=== PATIENT | female | born 1980 | race Caucasian/White ===

== ENCOUNTER → 2024-02-03 12:56 | Outpatient (REF) | payer BC, SELFPAY | LOC: HWRAD 12:56 | PROVIDERS: ATTENDING PHYSICIAN Nurse Practitioner Family | DX: R10.9 Unspecified abdominal pain (principal) | CPT/HCPCS: 74176 ==

== ENCOUNTER → 2024-12-23 11:38 | Outpatient (REF) | payer BC, SELFPAY | LOC: HWCARD 11:38 | PROVIDERS: ATTENDING PHYSICIAN Nurse Practitioner Family | DX: K57.32 Diverticulitis of large intestine without perforation or abscess without bleeding (principal); Z85.43 Personal history of malignant neoplasm of ovary; Z80.0 Family history of malignant neoplasm of digestive organs; E66.01 Morbid (severe) obesity due to excess calories | CPT/HCPCS: 93005 ==

== ENCOUNTER 2025-06-15 00:45 | Observation (INO) | payer BC, SELFPAY ==
[2025-06-14 19:24] VITALS: BP 138/96
[2025-06-14 20:01] LABS: Hematocrit 43.9 % (37.0-47.0); Hemoglobin 14.6 g/dL (12.0-16.0); Mean Corp Hgb Conc. 33.3 g/dL (33.0-37.0); Mean Corpuscular Volume 81.6 fL (81.0-99.0); Nucleated Red Blood Cells % 0 %; Platelet Count 358 10^3/uL (130-400); Red Cell Dist. Width 13.4 % (11.5-14.5)
[2025-06-14 20:08] LABS: Urine Character Slightly Cloudy (Clear)
[2025-06-14 20:20] LABS: Urine Squamous Cell 21-25 /LPF (Few); Urine White Cell >100 /HPF (0-5)
[2025-06-14 20:24] LABS: ALT (SGPT) 17 U/L (0-35); AST (SGOT) 18 U/L (14-36); Albumin 4.5 g/dl (3.5-5.0); Alkaline Phosphatase 97 U/L (38-126); Blood Urea Nitrogen 15 mg/dl (7-17); Calcium 9.7 mg/dl (8.4-10.2); Carbon Dioxide 24 mmol/L (22-30); Chloride 102 mmol/L (98-107); Glucose 96 mg/dl (70-99); Lipase 117 U/L (23-300); Potassium 4.1 mmol/L (3.5-5.1); Sodium 136 mmol/L (135-145); Total Protein 7.3 g/dl (6.3-8.2); eGFR > 60.00
--- NOTE | 2025-06-14 21:51 | ED.GENMED ---
History of Present Illness
General
Chief Complaint: Flank Pain
Source: patient
Time Seen by Provider: 06/14/25 21:35
History of Present Illness
History of Present Illness:
44-year-old female presenting to the ER for evaluation after she was diagnosed with a urinary tract infection at urgent care on Thursday, noticed in the week or so leading up to this she was having urinary urgency and frequency, at the beginning had 1
episode of hematuria, started on Ceftin which she has taken 4 total days worth. She reports that today symptoms started to worsen and were accompanied with a tactile fever, nausea and vomiting and worsening pain to her left flank area. Patient
states she has a known kidney stone but otherwise no other pertinent history. She did not take anything for her symptoms prior to arrival.
Past History
Past History
ED Past Medical History: Other (Diverticulitis)
ED Past Surgical History:
Social History
Tobacco: Non-smoker
Alcohol: None
Drug: None
Personal:
Living: with family
Employment: Employed
Review of Systems
Review of Systems
All Other Systems: ROS reviewed and negative except as documented in HPI and ROS
Phy Exam
Physical Exam
Physical Exam:
GENERAL: Alert , in no apparent distress
EYE: clear conjunctiva b/l
HEAD: NCAT
ENT: o/p clr, mmm.
CARDIAC: Regular rate and rhythm .
LUNGS: Clear breath sounds bilaterally, no acute respiratory distress, no wheezes/rales/rhonchi
ABDOMEN: Soft, without focal tenderness, no r/g, left CVAT
NEUROLOGICAL: Alert and oriented
SKIN: Warm and dry, skin intact.
MUSCULOSKELETAL: well perfused.
PSYCH: Normal and appropriate interaction.
Scores
Heart Failure Risk
Heart Failure Risk Score: Not Applicable
Heart Score for Chest Pain Patients
STEMI patient?: Not applicable
Withdrawal Assessment of Alcohol
Withdrawal Assessment Completed?: Not applicable
Course
Orders/Labs/Results
Orders:
Orders
06/14/25 19:51
Complete Blood Count/With Diff Urgent
Comprehensive Metabolic Panel Urgent
HCG, Serum Qualitative Screen Urgent
Comment: ADD ON
Lipase Urgent
Urinalysis Reflex To Culture Urgent
Date Specimen was Collected: 06/14/25
Time Specimen was Collected: 19:29
Urine Microscopic Reflex Cult Urgent
Urine Culture Urgent
WILLIAM Source: U
Specimen Description:
Date Specimen was Collected: 06/14/25
Time Specimen was Collected: 19:29
06/14/25 21:45
CT Abd/pel Without Iv Or Oral Urgent
Comment:
Reason For Exam: left flank pain, hx stone, UTI
06/14/25 21:50
Add On- LAB Urgent
Tests Added?: HCG qual
06/14/25 22:09
LevoFLOXacin 500 MG/100 ML [Levaquin] 500 mg in 100 ml IV NOW
06/14/25 22:39
Ondansetron Injectable [Zofran] 4 mg IV NOW STA
Abnormal Lab Results
06/14/25
19:51
WBC 12.0 H 10^3/uL
(4.8-10.8)
Absolute Neuts (auto) 8.5 H 10^3/uL
(1.4-6.5)
Absolute Monos (auto) 0.9 H 10^3/uL
(0.1-0.6)
Lymphocytes % 19.2 L %
(20.5-51.1)
Ur Occult Blood Reflex 2+ A
(Negative)
Urine Nitrite (Reflex) Positive A
(Negative)
Urine Bilirubin 1+ A
(Negative)
Leukocyte Esterase Rfl 3+ A
(Negative)
Urine RBC 3-6 A /HPF
(0-2)
Urine WBC (Reflex) >100 A /HPF
(0-5)
Urine Bacteria (Reflex) Moderate A
(Negative)
Urine Albumin (Reflex) 2+ A
(Neg - Trace)
06/14/25 19:51
06/14/25 19:51
Vital Signs
Initial and Last Documented VS:
Initial Vital Signs
Temp Pulse Resp BP Pulse Ox
97.4 F 94 18 138/96 96
06/14/25 19:24 06/14/25 19:24 06/14/25 19:24 06/14/25 19:24 06/14/25 19:24
Last Documented Vital Signs
Temp Pulse Resp BP Pulse Ox
97.4 F 86 18 131/72 98
06/14/25 19:24 06/14/25 22:17 06/14/25 22:17 06/14/25 22:17 06/14/25 22:17
MDM/Problems Addressed
Differential Diagnosis Includes:
Pyelonephritis
Infected stone
Muscle strain
Shingles
PAPA
MDM/Problems Addressed:
44-year-old female presenting to the ER for evaluation of continued urinary symptoms, today developed fever nausea and vomiting increased pain. Urine culture reviewed from the urgent care which shows ESBL E. coli which is multidrug-resistant. The
bacteria is susceptible to levofloxacin. Will initiate this IV currently. Will check CT scan to rule out infected kidney stone. Disposition pending.
*Radiology
Radiology exam reviewed: radiology read reviewed
*Pulse Oximetry
SaO2: 96
Oxygen Mode of Delivery: Room air
Patient hypoxic: no
*Critical Care Note
Total Time (30-74mins, 75-104mins- exclusive of procedures): Not Applicable
Patient Management
Discussion with other providers: Hospitalist
Escalation/DeEscalation of care consider admission/obs:
CT scan shows bilateral nephrolithiasis but no evidence for obstructive uropathy. Patient did endorse some mild nausea during her workup, Zofran was given. Given her subjective fever combined with her elevated white blood cell count, nausea and
vomiting and pain it was ultimately decided we would admit patient for IV antibiotics with Levaquin for the time being given the culture report. Hospitalist team is aware and accepts for continued evaluation and treatment.
ED Attending Note
-
Portions of this chart may have been created with voice recognition software.� Occasional wrong word or��sound alike� substitutions may have occurred due to the inherent limitations of voice recognition software.
Discharge Plan
Departure
Patient Disposition: Admit
Date of Disposition: 06/14/25
Time of Disposition: 23:20
Presentation/result/management discussed w/ accepting MD/DO: Hospitalist
Discharge Problem:
Acute pyelonephritis
Prescriptions:
No Action
zrqsavipmlxs-qqjd-axbcr acid [Centrum Women] 1 EACH tablet
1 ea PO DAILY
hydrocodone-acetaminophen 1 TABLET tablet
1 - 2 tab PO Q4HPRN PRN (Reason: pain) Qty: 30 0RF
Referrals:
Roseanna Brizuela CRNP [Family Provider, Family Practice]
Interventions
Interventions:
*Risk Screen - Suicide Last Done: 06/14/25 19:24
*ED Influenza Vaccine History Last Done: 06/14/25 19:24
[facility] Risk Assessment Tool Last Done: 06/14/25 22:37
KG-Wurlbz-Hbuljzcgtt Assessment Last Done: 06/14/25 22:36
ED-Female Genitourinary Assessment Last Done: 06/14/25 22:36
Discharge Date and Time
Print Language: ROMANIAN
[2025-06-14 22:17] VITALS: BP 131/72
[2025-06-14 22:17] LABS: HCG, Serum Qualitative Screen Negative
[2025-06-14] MEDS: ZOFRAN 4 MG IV (22:46)
[2025-06-14] MEDS: LEVAQUIN 100 IV (22:48)
--- NOTE | 2025-06-15 00:14 | HPS.HSE ---
Family Physician
-
Family Physician: SAILAJA Willams
Chief Complaint
-
Flank pain
History of Present Illness
This is a 44-year-old female who has past medical history significant for ovarian cancer status posttreatment, anxiety, history of diverticulitis who presents to the Emergency Department with persistent flank pain despite outpatient antibiotics.
Patient reported that she has been having symptoms over the last 2 weeks but mostly just flank pain. Today she reported that she had a fever at home. She also had nausea and vomiting x 1. She reports a sense of urgency but no dysuria. She denies
any frequency. Patient reported that she was given cefuroxime and had no improvement. She did have urine culture at time of diagnosis which showed ESBL. The cultures were sensitive to's Zosyn, levofloxacin, and Augmentin. Also sensitive to
fourth generation cephalosporin and ertapenem. She denies prior history of ESBL infection.
In the emergency department the patient was afebrile, blood pressure was 131/72 with a pulse rate of 86 and oxygen saturation of 98% on room air.
Otherwise count of 12.0 hemoglobin and platelet were normal. Electrolytes BUN/creatinine were normal. CT of the abdomen and pelvis showing bilateral nephrolithiasis, no evidence of ureteral calculus bilaterally. No hydronephrosis. A
intra-abdominal exam was otherwise normal.
Medical History
Past Medical History
Past Medical History: Reports Cancer (Ovarian cancer status post treatment completed 2021), Psychiatric (Anxiety) and Other (Diverticulitis)
Past Surgical History: Reports , Gynocological (Total abdominal hysterectomy), Tonsilectomy and Other (Breast lumpectomy 09/22/2021)
Social History
Tobacco: Non-smoker
Alcohol: None
Drug: Former User
Family History
Family History: Not pertinent
Allergies / Home Medications
Allergies reflects when Allergies were last updated in [employer].
Home Medications with original date entered in [facility]
Allergy/Medication List:
Allergies
Allergy/AdvReac Type Severity Reaction Status Date / Time
metronidazole (From Flagyl) Allergy Vomiting Verified 06/14/25 19:24
Home Medications
multivitamin-ferrous fumarate-folic acid 18 mg-400 mcg tablet (Centrum Women) 1 ea PO DAILY 12/18/20
hydrocodone 5 mg-acetaminophen 325 mg tablet 1 - 2 tab PO Q4HPRN PRN pain #30 tabs 12/23/20
Review of Systems
-
Constitutional: Reports No Symptoms
EENT: Reports No Symptoms
Respiratory: Reports No Symptoms
Cardiac: Reports No Symptoms
Abdomen/GI: Reports No Symptoms
: Reports Flank Pain
Musculoskeletal: Reports No Symptoms
Skin: Reports No Symptoms
Neurological: Reports No Symptoms
Endocrine: Reports No Symptoms
Hematologic/Lymphatic: Reports No Symptoms
Psych: Reports No Symptoms
Physical Exam
Vital Signs
Vital Signs
Temp Pulse Resp BP Pulse Ox
97.4 F 86 18 131/72 98
06/14/25 19:24 06/14/25 22:17 06/14/25 22:17 06/14/25 22:17 06/14/25 22:17
Physical Exam
General: Well Developed, Well Nourished, No Apparent Distress and Obese
HEENT: NormoCephalic, Moist mucous membranes and Atraumatic
Respiratory: Clear
Cardiac: S1/S2 and Regular Rhythm; No Murmur or Rub
GI: Soft, Non Tender, Non Distended and Normal Bowel Sounds; No Organomegaly
Rectal: Deferred by Provider
Musculoskeletal: No Clubbing, No Cyanosis and No Edema
Skin: No Rash
Neuro: AO x 3 and Nonfocal/grossly intact
Psych: Calm
Laboratory Results
-
06/14/25 19:51
06/14/25 19:51
Laboratory Results
Total Bilirubin 0.6 mg/dl (0.2-1.3) 06/14/25 19:51
AST 18 U/L (14-36) 06/14/25 19:51
ALT 17 U/L (0-35) 06/14/25 19:51
Alkaline Phosphatase 97 U/L (38-126) 06/14/25 19:51
Lipase 117 U/L (23-300) 06/14/25 19:51
Data Reviewed
-
CT Scan: Report Reviewed by me
Lab Data: Labs Reviewed by me
Old Records: Reviewed
Impression/Plan
-
IMPRESSION:
44-year-old female with history of nephrolithiasis who presents to the emergency department with left-sided flank pain x 2 weeks. Patient has been on oral antibiotics without any improvement. Reported subjective fever and nausea vomiting at home
today. UA is markedly positive. She does not show signs of sepsis as she has been afebrile, hemodynamically stable and nontoxic-appearing.
PLAN:
Pyelonephritis -ESBL but with sensitivities to levofloxacin and Augmentin, started on Augmentin in the ED
� Admit to [facility] observation
� Continue levofloxacin 750mg, no recent quinolone exposure and ESBL infection. HD stable and afebrile here.
� Urine cultures have been sent and pending
� If patient remains afebrile, has no significant symptoms of flank pain then can likely be discharged discharge on oral levofloxacin
� Pain control and antiemetics
DVT prophylaxis�Lovenox subcu
CODE STATUS�full code
[2025-06-15 01:33] VITALS: BP 96/67
[2025-06-15 01:47] VITALS: BMI 42.4
[2025-06-15 05:18] VITALS: BP 122/58
[2025-06-15 05:29] LABS: Hematocrit 40.1 % (37.0-47.0); Hemoglobin 13.4 g/dL (12.0-16.0); Mean Corp Hgb Conc. 33.4 g/dL (33.0-37.0); Mean Corpuscular Volume 81.8 fL (81.0-99.0); Platelet Count 317 10^3/uL (130-400); Red Cell Dist. Width 13.5 % (11.5-14.5)
[2025-06-15 05:54] LABS: Blood Urea Nitrogen 12 mg/dl (7-17); Calcium 9.2 mg/dl (8.4-10.2); Carbon Dioxide 25 mmol/L (22-30); Chloride 104 mmol/L (98-107); Estimated Creatinine Clearance > 125 ml/min; Glucose 99 mg/dl (70-99); Potassium 4.4 mmol/L (3.5-5.1); Sodium 138 mmol/L (135-145); eGFR > 60.00
[2025-06-15 10:25] VITALS: BP 132/64
[2025-06-15] MEDS: TYLENOL 650 MG PO ×2 (10:40→19:45)
--- NOTE | 2025-06-15 11:19 | CM ---
Chart reviewed OBS form reviewed and signed
Lives in [place] with spouse, dtr and son
Works as a ese teacher at [employer]
no DME
PCP Roseanna Brizuela
Pharmacy [facility] on [facility] [address] [facility]
no hx of VN nor SNF
DCP is to go home with no services
Cm will continue to follow up for any dcp needs
--- NOTE | 2025-06-15 13:42 | W.PN.UPDATE ---
Update Note
Progress Note Update
Seen and admitted by Dr Magallanes for failed OP UTI tx due to ESBL organism.
Started on IV Levaquin based on sensitivities
Will follow response and dc depending on the response
[2025-06-15 15:00] VITALS: BMI 40.6
--- NOTE | 2025-06-15 15:02 | PTCARENOTE ---
Pt received from ED via wheelchair accompanied by family and staff. Pt ambulated to standing scale and then to room with steady gait. Pt oriented to staff and environment.
[2025-06-15 15:04] VITALS: BP 133/73
[2025-06-15 15:05] VITALS: BMI 39.4
[2025-06-15] MEDS: LOVENOX 40 MG SC (17:58)
[2025-06-15] MEDS: LEVAQUIN 150 IV (22:06)
[2025-06-15 23:00] VITALS: BP 113/72
[2025-06-16 07:31] VITALS: BP 131/75
--- NOTE | 2025-06-16 11:07 | W.DCSUMMARY ---
Discharge Summary
Discharge Data
Date of Admission: 06/15/25
Date of Discharge: 06/16/25
-
Pending Results: No
Hospital Course
Primary diagnosis:
ESBL Escherichia coli urinary tract infection
Possible acute pyelonephritis
Secondary diagnosis:
Nephrolithiasis
Hospital course:
Patient with a history of nephrolithiasis found to have left-sided flank pain for 2 weeks. She was put on oral antibiotic without any improvement. She had subjective symptoms of fever, nausea and vomiting at home. She was also having left-sided
flank discomfort. A urinalysis was positive still on admission. She had evaluation as an outpatient including urine culture which turned out positive for ESBL E. coli. CT of the abdomen pelvis showed bilateral nephrolithiasis but no evidence of
ureteral calculus bilaterally.
She was switched to Levaquin and was given IV route.
Today she has she had complete resolution of flank pain. She had no further GI symptoms. She had no lower symptoms of dysuria or frequency. Afebrile, no tachycardia and blood pressure stable. Abdomen soft without flank tenderness. QTc is 415.
Antibiotics were switched to oral ciprofloxacin to continue for another 8 days for total of 10 days of treatments with possibility of clinical pyelonephritis.
Medically stable for discharge home today. Advised to follow with PCP.
Discharge Plan
-
Patient Disposition: Home (Routine Discharge)
Discharge Diagnosis/Procedures: ESBL Ecoli complicated UTI
Diet: Regular
Activity: As tolerated
Driving Restrictions: As prior to admission
Bathing Restrictions: None
Referrals:
Roseanna Brizuela CRNP [Family Provider, Family Practice] - in less than 1 week
Prescriptions:
New
acetaminophen 325 mg Tablet
650 mg PO Q4HPRN PRN (Reason: mild pain/LILLY/temp> 100.4F) Qty: 1 0RF
ciprofloxacin HCl 500 mg tablet
500 mg PO BID Qty: 16 0RF
Continued
Zepbound 7.5 mg/0.5 mL Pen Injector
7.5 mg SC GARCIA
Gruns
8 gummy PO DAILY
Patient Comments:
whole fruits, veggies, super mushrooms, prebiotics, adaptogens
ibuprofen [Advil] 200 mg Tablet
200 mg PO Q6H PRN (Reason: mild pain)
Discharge Orders:
Discharge Patient (As Directed); Ordered 06/16/25
Ordered By: Oral Cat
Discharge Date and Time
Print Language: GREENLANDIC
--- NOTE | 2025-06-16 13:28 | CM ---
MD entered order for discharge.
Pt is agreeable to discharge to home .
Offered VN she declined need.
Kim Foster will drive her home.
PLAN Home no needs
== END 2025-06-16 12:51 | disposition home or self-care (01) ==
LOC: 3 WEST ACU 00:45
PROVIDERS: ADMITTING PHYSICIAN Internal Medicine; ATTENDING PHYSICIAN Internal Medicine; EMERGENCY PHYSICIAN Student in an Organized Health Care Education/Training Program; FAMILY PHYSICIAN Nurse Practitioner Family
DX: N39.0 Urinary tract infection, site not specified (principal); B96.20 Unspecified Escherichia coli [E. coli] as the cause of diseases classified elsewhere; N20.0 Calculus of kidney; Z16.12 Extended spectrum beta lactamase (ESBL) resistance; Z16.24 Resistance to multiple antibiotics; Z87.442 Personal history of urinary calculi; Z79.899 Other long term (current) drug therapy
CPT/HCPCS: 74176; 80048; 80053; 81003; 81015; 83690; 84703; 85025; 85027; 87077; 87086; 87186; 93005; 96365; 96375; 99285; G0378